=== PATIENT | female | born 2000 | race Two or more races ===

== ENCOUNTER 2024-04-16 13:36 | Emergency (ER) | payer MEDICAID, OTHER ==
[~2024-04-16] VITALS: Ht 165.1 cm; Wt 56.8 kg
[2024-04-16 15:16] VITALS: BP 100/63; PULSE 83; RESP 18; TEMP 100.1; O2SAT 96
[2024-04-16 16:54] LABS: COVID19 ANTIGEN SOFIA FIA NEGATIVE (NEGATIVE)
[2024-04-16 16:59] LABS: Rapid Influenza A Positive (Negative); Rapid Influenza B Negative (Negative)
[2024-04-16] MEDS ORDERED: ACET500T58 PO (17:09)
[2024-04-16] MEDS ORDERED: IBUP-1454 PO (17:09)
[2024-04-16] MEDS ORDERED: PROM1SOL4 PO (17:09)
--- NOTE | 2024-04-16 17:09 | ED.PDOC ---
History of Present Illness HPI Comments 24-year-old female with a history of migraines presents with a chief complaint of URI symptoms such as body aches cough runny nose. Not taking medications for the symptoms listed above. Chief Complaint: Flu like Time Seen by MD: 14:26 Reviewed Notes: Nurses Notes, Medications, Allergies Information Source: Patient Family History Family History: Reviewed,noncontributory to illness Social History Smoker: Non-Smoker Alcohol: Denies ETOH Use Drugs: Denies Drug Use All Other Systems: Reviewed and Negative (per hpi) Physical Exam General Appearance: No Apparent Distress, Normal HEENT: Normal ENT Inspection, Pharynx Normal, TMs Normal Neck: Full Range of Motion, Non-Tender, Normal, Normal Inspection Respiratory: Chest Non-Tender, Lungs Clear, No Accessory Muscle Use, No Respiratory Distress, Normal Breath Sounds Cardiovascular: No Edema, No JVD, No Murmur, No Gallop, Normal Peripheral Pulses, Regular Rate/Rhythm Breast Exam: Deferred Gastrointestinal: No Organomegaly, Non Tender, No Pulsatile Mass, Normal Bowel Sounds, Soft Genitalia: Deferred Pelvic: Deferred Rectal: Deferred Extremities: No calf tenderness, Normal capillary refill, Normal inspection, Normal range of motion, Non-tender, No pedal edema Musculoskeletal : Apperance: Normal Neurologic: Alert, 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 Was a procedure done?: No Fever Differential Dx Differential Diagnosis: Influenza X-Ray, Labs, Meds, VS Vital Signs Date Time Temp Pulse Resp B/P (MAP) Pulse Ox O2 Delivery O2 Flow Rate FiO2 04/16/24 15:16 100.1 83 18 100/63 (75) 96 100.1 04/16/24 15:16 83 18 96 Room Air 04/16/24 14:55 100.1 83 20 100/63 (75) 96 Lab Test 04/16/24 13:02 Range/Units Influenza Type A Antigen Positive Negative Influenza Type B Antigen Negative Negative SARS-CoV-2 Antigen (Rapid) Negative NEGATIVE Current Medications Medications (Trade) Dose Ordered Sig/Christiana Route Start Time Stop Time Status Last Admin Ketorolac Tromethamine (Toradol Injection) 30 mg ONCE ONCE IM 04/16/24 17:15 04/16/24 17:16 DC 04/16/24 17:24 Prochlorperazine Edisylate (Compazine Inj) 10 mg ONCE ONCE IM 04/16/24 17:15 04/16/24 17:16 DC 04/16/24 17:24 Diphenhydramine HCl (Benadryl Capsule) 25 mg ONCE ONCE PO 04/16/24 17:15 04/16/24 17:16 DC 04/16/24 17:23 X-Ray, Labs, Meds, VS Comment The patient is overall well-appearing nontoxic on exam. On physical exam, respirations even and unlabored, clear to auscultation bilaterally. Oxygen stable on room air. Viral testing done and results show influenza a Did not have any focal lung findings and therefore chest x-ray was not indicated during this exam Low suspicion of strep pharyngitis given physical exam findings and patient's presenting symptoms No signs of meningismus on exam Overall, the patient is well hydrated and nontoxic. Plan for symptomatic control for fever and pain as needed. The patient was able to tolerate p.o. intake in the ED. at this time, patient is safe for discharge home. The exam findings and plan discussed. We will discharge home with PCP follow up and strict return precautions. Discussed that cough can linger up to 6 weeks after viral URI Supportive care and return precautions discussed Counseled viral infection and explained that antibiotics would not be helpful in resolving the illness sooner. Recommended vitamin C, rest, handwashing, and symptomatic care. Expect 2-week course with possibly of cough lingering up to 6 weeks. Nonpharmacological remedies for fluids has been recommended as well Time of 1ST Reevaluation: 17:00 Reevaluation 1ST: Improved Patient Education/Counseling: Diagnosis, Treatment Family Education/Counseling: Diagnosis, Treatment Departure 1 Departure Time of Disposition: 17:08 Impression: Primary Impression: Influenza Additional Impression: Migraine Qualified Codes: G43.909 - Migraine, unspecified, not intractable, without status migrainosus Disposition: HOME / SELF CARE / HOMELESS Condition: Stable Additional Instructions: Discharge Note: Drink plenty of fluids. Follow up with your primary Dr. If your condition becomes worse call and follow up with your primary Dr. for instructions or return to the ER if needed. Thank you for visiting [facility]. e-Prescriptions Promethazine-Dm (Promethazine Dm 6.25-15 mg/5Ml) 1 Tari Tari 5 ML PO TID for 10 Days, #150 ML 0 Refills Prov: AIDEN SIMMS NP 04/16/24 Acetaminophen (Acetaminophen) 500 Mg Tab 500 MG PO Q6HP PRN for 10 Days, #40 TAB 0 Refills Prov: AIDEN SIMMS NP 04/16/24 Ibuprofen (Ibuprofen) 600 Mg Tab 1 TAB PO TID for 10 Days, #30 TAB 0 Refills Prov: AIDEN SIMMS NP 04/16/24 Critical Care Note Critical Care Time?: No Stability Stability form required: No Heart Score Heart Score: Heart Score Response (Comments) Value History N/A 0 EKG N/A 0 Age N/A 0 Risk Factors N/A 0 Troponin N/A 0 Total 0 AIDEN SIMMS NP Apr 16, 2024 17:09
[2024-04-16] MEDS: diphenhdrAMINE HCL 25 MG CAP PO ONE (17:23)
[2024-04-16] MEDS: KETOROLAC TROMETH 30 MG/ML 1ML VIAL IM ONE (17:24)
[2024-04-16] MEDS: PROCHLORPERAZINE EDISYLATE 5 MG/ML 2ML VIAL IM ONE (17:24)
== END 2024-04-16 17:11 | disposition home or self-care (01) ==
LOC: ER 13:36
DX: J10.1 Influenza due to other identified influenza virus with other respiratory manifestations (principal); G43.909 Migraine, unspecified, not intractable, without status migrainosus; Z20.822 Contact with and (suspected) exposure to COVID-19
CPT/HCPCS: 36415; 87426; 87804; 96372; 99284; J0780; J1885